=== PATIENT | female | born 1990 | race Caucasian/White ===

== ENCOUNTER 2016-12-02 16:11 | Emergency (ER) | payer BC ==
[~2016-12-02] VITALS: Ht 160 cm; Wt 97.5 kg
--- NOTE | ~2016-12-02 | EKG ---
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
[2016-12-02 17:14] LABS: HEMATOCRIT 38.3 % (37.0-47.0); HEMOGLOBIN 12.6 gm/dL (12.0-15.0); MCH 26.9 pg (26.0-34.0); MCHC 32.8 g/dL (28.0-37.0); PLATELET COUNT 309 thou/uL (150-400); RBC 4.67 mil/uL (4.20-5.00); WBC 7.6 thou/uL (4.0-11.0)
[2016-12-02 17:18] LABS: URINE BILIRUBIN NEGATIVE (Negative); URINE BLOOD 1+ (Negative); URINE COLOR YELLOW; URINE GLUCOSE-RANDOM* NEGATIVE (Negative); URINE KETONES NEGATIVE (Negative); URINE NITRITE NEGATIVE (Negative); URINE PROTEIN (DIPSTICK) NEGATIVE (Negative); URINE SPECIFIC GRAVITY 1.025 (1.003-1.035); URINE UROBILINOGEN 0.2 E.U./dl (0.2-1.0)
[2016-12-02 17:21] LABS: ANION GAP 11 mmol/L (7-16); BUN 10 mg/dL (7-18); CALCIUM 8.7 mg/dL (8.5-10.1); CHLORIDE 105 mmol/L (98-107); CO2 24 mmol/L (21-32); CREATININE 0.8 mg/dL (0.6-1.0); GLUCOSE 85 mg/dL (74-106); POTASSIUM 3.4 mmol/L (3.5-5.1); SODIUM 140 mmol/L (136-145)
[2016-12-02 17:22] LABS: MANUAL DIFF YES
[2016-12-02 17:25] LABS: ALBUMIN 2.9 g/dL (3.4-5.0); ALKALINE PHOSPHATASE 42 U/L (46-116); SGOT 13 U/L (15-37); SGPT 11 U/L (30-65); TOTAL PROTEIN 6.6 g/dL (6.4-8.2)
[2016-12-02 17:25] LABS: SQUAMOUS 4-10 Moderate /LPF (0-3)
[2016-12-02 17:26] LABS: CASTS None Seen /LPF (None Seen); CRYSTALS None Seen /LPF (None Seen); URINE RBC 3-10 Few /HPF (0-2); URINE WBC None Seen /HPF (0-5)
[2016-12-02 17:37] LABS: ABSOLUTE NEUTROPHILS 4.9 thou/uL (1.4-8.2); TOTAL CELL COUNT 100
[2016-12-02 17:38] LABS: DIRECT BILIRUBIN < 0.1 mg/dL (<0.1-0.3); PLATELET ESTIMATE NORMAL; TOTAL BILIRUBIN < 0.1 mg/dL (<0.1-1.0)
[2016-12-02] MEDS ORDERED: CHANTIX1 MG PO (17:46)
[2016-12-02] MEDS ORDERED: GIANVI 3 MG-0.1 EACH PO (17:46)
[2016-12-02] MEDS ORDERED: VYVANSE70 MG PO (17:46)
[2016-12-02] MEDS ORDERED: COLACE100 MG PO (19:54)
[2016-12-02] MEDS ORDERED: CARAFATE 1 GM TA1 G1 PO (19:54)
[2016-12-02] MEDS ORDERED: NORCO 5-325 TA1 EACH PO (19:54)
[2016-12-02] MEDS ORDERED: ONDANSETRON HCL4 M2 PO (19:54)
[2016-12-02 20:14] VITALS: BP 122/65
== END 2016-12-02 20:15 | disposition home or self-care (01) ==
LOC: ER 16:11
PROVIDERS: Nurse Practitioner
DX: R10.13 Epigastric pain (principal); F32.9 Major depressive disorder, single episode, unspecified; F10.99 Alcohol use, unspecified with unspecified alcohol-induced disorder; Z98.890 Other specified postprocedural states; Z87.891 Personal history of nicotine dependence

== ENCOUNTER 2017-11-10 17:18 | Emergency (ER) | payer OTHER ==
[~2017-11-10] VITALS: Ht 160 cm; Wt 104.3 kg
[~2017-11-10 17:18] MED LIST: CARAFATE 1 GM TA1 G1 PO; CHANTIX1 MG PO; COLACE100 MG PO; GIANVI 3 MG-0.1 EACH PO; NORCO 5-325 TA1 EACH PO; ONDANSETRON HCL4 M2 PO; VYVANSE70 MG PO
[2017-11-10 17:41] LABS: URINE BILIRUBIN NEGATIVE (Negative); URINE BLOOD NEGATIVE (Negative); URINE CLARITY CLEAR; URINE COLOR YELLOW; URINE GLUCOSE-RANDOM* NEGATIVE (Negative); URINE KETONES NEGATIVE (Negative); URINE LEUKOCYTES-REFLEX NEGATIVE (Negative); URINE NITRITE-REFLEX NEGATIVE (Negative); URINE PROTEIN (DIPSTICK) NEGATIVE (Negative); URINE SPECIFIC GRAVITY <= 1.005 (1.005-1.035); URINE UROBILINOGEN 0.2 E.U./dl (0.2-1.0)
[2017-11-10 19:25] VITALS: BP 111/69
[2017-11-10 19:32] LABS: HEMATOCRIT 39.6 % (37.0-47.0); HEMOGLOBIN 13.1 gm/dL (12.0-15.0); MCH 25.8 pg (26.0-34.0); MCV 78.2 fL (80.0-100.0); PLATELET COUNT 281 thou/uL (150-400); RBC 5.07 mil/uL (4.20-5.00); RDW 15.3 % (10.5-14.5)
[2017-11-10 19:39] LABS: CREATININE 0.8 mg/dL (0.6-1.0); POTASSIUM 3.1 mmol/L (3.5-5.1)
[2017-11-10 19:48] LABS: ALBUMIN 3.2 g/dL (3.4-5.0); TOTAL BILIRUBIN 0.2 mg/dL (<0.1-1.0); TOTAL PROTEIN 7.2 g/dL (6.4-8.2)
[2017-11-10 19:57] LABS: METAMYELOCYTES 1 %
[2017-11-10 19:58] LABS: ANISOCYTOSIS 1+
[2017-11-10] MEDS ORDERED: BENTYL 20 MG TA20 M1 PO (19:58)
[2017-11-10] MEDS ORDERED: ZANTAC 150MG T150 MG PO (19:58)
[2017-11-10] MEDS ORDERED: ONDANSETRON HCL4 M2 PO (19:58)
== END 2017-11-10 20:19 | disposition home or self-care (01) ==
LOC: ER 17:18
PROVIDERS: Nurse Practitioner Family
DX: B34.9 Viral infection, unspecified (principal); F32.9 Major depressive disorder, single episode, unspecified; Z88.5 Allergy status to narcotic agent; Z87.891 Personal history of nicotine dependence

== ENCOUNTER 2020-05-06 17:07 | Emergency (ER) | payer OTHER ==
[~2020-05-06] VITALS: Ht 160 cm; Wt 129.3 kg
[~2020-05-06 17:07] MED LIST changes: +BENTYL 20 MG TA20 M1 PO; +ZANTAC 150MG T150 MG PO
[2020-05-06 17:22] LABS: URINE BILIRUBIN NEGATIVE (Negative); URINE BLOOD NEGATIVE (Negative); URINE CLARITY CLEAR; URINE COLOR YELLOW; URINE GLUCOSE-RANDOM* NEGATIVE (Negative); URINE KETONES NEGATIVE (Negative); URINE LEUKOCYTES-REFLEX NEGATIVE (Negative); URINE NITRITE-REFLEX NEGATIVE (Negative); URINE PROTEIN (DIPSTICK) NEGATIVE (Negative); URINE UROBILINOGEN 0.2 E.U./dl (0.2-1.0)
[2020-05-06 17:31] LABS: HEMATOCRIT 37.8 % (37.0-47.0); HEMOGLOBIN 12.3 gm/dL (12.0-15.0); MCH 25.9 pg (26.0-34.0); MCHC 32.5 g/dL (28.0-37.0); MCV 79.7 fL (80.0-100.0); PLATELET COUNT 353 thou/uL (150-400); RBC 4.74 mil/uL (4.20-5.00); RDW 16.2 % (10.5-14.5); WBC 6.5 thou/uL (4.0-11.0)
[2020-05-06 17:41] LABS: CALCIUM 9.5 mg/dL (8.5-10.1); CREATININE 0.7 mg/dL (0.6-1.0); POTASSIUM 3.9 mmol/L (3.5-5.1)
[2020-05-06 17:47] LABS: ALBUMIN 3.7 g/dL (3.4-5.0); TOTAL BILIRUBIN 0.2 mg/dL (0.2-1.0); TOTAL PROTEIN 7.6 g/dL (6.4-8.2)
[2020-05-06 18:13] LABS: ABSOLUTE NEUTROPHILS 4.4 thou/uL (1.4-8.2)
[2020-05-06 18:14] LABS: ANISOCYTOSIS 1+
[2020-05-06] MEDS ORDERED: NORCO 5-325 TA1 EAC2 PO (19:28)
[2020-05-06] MEDS ORDERED: OMEPRAZOLE40 MG PO (19:28)
[2020-05-06] MEDS ORDERED: OMEPRAZOLE 20 M20 M1 PO (19:31)
[2020-05-06 19:46] VITALS: BP 113/61
== END 2020-05-06 19:50 | disposition home or self-care (01) ==
LOC: ER 17:07
PROVIDERS: Emergency Medicine; Physician Assistant
DX: K80.20 Calculus of gallbladder without cholecystitis without obstruction (principal); Z79.899 Other long term (current) drug therapy; Z87.891 Personal history of nicotine dependence; Z88.5 Allergy status to narcotic agent